=== PATIENT | female | born 1995 | race Hispanic/Latino ===

== ENCOUNTER 2021-10-18 09:47 | Day surgery (SDC) | payer OTHER ==
[2021-10-18 10:30] VITALS: BMI 44.4
[2021-10-18] MEDS ORDERED: hydrALAZINE 20 MG/ML VIAL SLOW IVP PRN (12:02)
== END 2021-10-18 11:36 | disposition home health service (06) ==
LOC: CSHLD/OP 09:47
PROVIDERS: ATTEND Student in an Organized Health Care Education/Training Program
DX: O36.8130 Decreased fetal movements, third trimester, not applicable or unspecified (principal); O34.03 Maternal care for unspecified congenital malformation of uterus, third trimester; Q51.3 Bicornate uterus; O36.5930 Maternal care for other known or suspected poor fetal growth, third trimester, not applicable or unspecified; O34.211 Maternal care for low transverse scar from previous cesarean delivery; Z3A.33 33 weeks gestation of pregnancy; Z88.5 Allergy status to narcotic agent

== ENCOUNTER 2021-11-14 13:28 | Outpatient (CLI) | payer OTHER ==
[2021-11-14 16:16] LABS: Hemoglobin 11.6 g/dL (12.0-15.5); Mean Corpuscular HGB CONC 32.7 g/dL (32.0-36.0); Mean Corpuscular Volume 79.6 fl (81.6-98.3); Mean Platelet Volume 10.7 fl (7.4-10.4); Platelet Count 242 10x3/uL (150-450); Red Blood Cell (RBC) Count 4.46 10x6/uL (3.90-5.03); White Blood Cell (WBC) Count 9.8 10x3/uL (3.5-10.5)
[2021-11-14 16:34] LABS: Syphilis Antibody Nonreactive (Nonreactive); Syphilis Antibody Index 0.07 S/CO (<1.00 Non-Reactive)
[2021-11-14 16:35] LABS: Hep B Surf Ag Non-Reactive S/CO (NonReactive)
[2021-11-14 16:44] LABS: HBSAg Index 0.17 S/CO (0-0.99)
[2021-11-15 18:35] LABS: SARS-CoV-2 PCR by NAA Not Detected (NotDetected)
== END 2021-11-14 13:29 | disposition home or self-care (01) ==
LOC: CSHLAB 13:28
PROVIDERS: ATTEND Student in an Organized Health Care Education/Training Program
DX: Z01.812 Encounter for preprocedural laboratory examination (principal); Z20.822 Contact with and (suspected) exposure to COVID-19; O34.211 Maternal care for low transverse scar from previous cesarean delivery
CPT/HCPCS: 85027; 86780; 86900; 86901; 87340; U0003; U0005

== ENCOUNTER 2021-11-16 10:10 | Inpatient (IN) | payer OTHER ==
[2021-11-16] MEDS ORDERED: ceFAZolin 2 GM/Dextrose 50 ML 2 GM in Premix Bag 1 BAG IVPB SCH (10:34)
[2021-11-16] MEDS ORDERED: Ondansetron PF 4 MG/2 ML Vial IVP PRN ×3 (10:34→16:05)
[2021-11-16] MEDS ORDERED: Bicitra 30 ML UDCUP PO PRN (10:34)
[2021-11-16] MEDS ORDERED: Famotidine/PF 20 mg/2ml Vial SLOW IVP PRN (10:34)
[2021-11-16] MEDS ORDERED: hydrALAZINE 20 MG/ML VIAL SLOW IVP PRN ×2 (10:34→16:05)
[2021-11-16] MEDS ORDERED: Promethazine HCl 25 MG/ML VIAL IM PRN ×2 (10:34→11:02)
[2021-11-16] MEDS ORDERED: Meperidine HCl/PF 25 MG/ML VIAL SLOW IVP PRN (11:02)
[2021-11-16] MEDS ORDERED: Naloxone HCl 0.4 mg/ml Vial IV PRN (11:02)
[2021-11-16] MEDS ORDERED: L&D-Morphine 4 MG/ML VIAL SLOW IVP PRN (11:02)
[2021-11-16] MEDS ORDERED: diphenhydrAMINE 50 MG/ML VIAL IVP PRN (11:02)
[2021-11-16] MEDS ORDERED: Fentanyl 100 MCG/2 ML VIAL SLOW IVP PRN (11:02)
[2021-11-16] MEDS ORDERED: Ondansetron HCl/PF 4 MG/2 ML Vial IVP PRN (11:02)
[2021-11-16] MEDS ORDERED: Hydrocerin (Eucerin) Cream 120 gm Jar TOP PRN (11:02)
[2021-11-16] MEDS ORDERED: Promethazine HCl 25 MG SUPP PR PRN (11:02)
[2021-11-16] MEDS ORDERED: Naloxone HCl 0.4 mg/ml Vial IVP PRN ×2 (11:02)
[2021-11-16] MEDS ORDERED: Morphine PF 10 MG/10 ML VIAL ONE (11:08)
[2021-11-16] MEDS ORDERED: Phenylephrine 40 MG/NS 250 ML 250 ML ONE (11:09)
[2021-11-16] MEDS ORDERED: Oxytocin 10 UNITS/ML VIAL ONE (11:09)
[2021-11-16] MEDS ORDERED: Ondansetron PF 4 MG/2 ML Vial ONE (11:09)
[2021-11-16] MEDS ORDERED: PHENYLEPHRINE-NS 100 MCG/ML 10 ML SYRINGE ONE (11:09)
[2021-11-16] MEDS ORDERED: Dexamethasone 4 mg/ml Vial ONE (11:09)
[2021-11-16] MEDS: Lactated Ringer's 1,000 ML IV SCH ×2 (11:10→12:03)
[2021-11-16] MEDS ORDERED: Communication Order-Pharmacy FS SCH (11:15)
[2021-11-16] MEDS ORDERED: Ketorolac Tromethamine 30 MG/ML VIAL IVP SCH (11:15)
[2021-11-16 13:03] LABS: RapidComm Collect By CBN; pH (Cord, venous) 7.357 (7.250-7.350)
[2021-11-16 13:04] LABS: RapidComm Collect By CBN
[2021-11-16] MEDS: Ketorolac Tromethamine 30 MG/ML VIAL IVP PRN ×2 (15:03→21:32)
[2021-11-16 15:55] VITALS: BMI 45.6
[2021-11-16] MEDS ORDERED: Bisacodyl 10 MG SUPP PR PRN (16:05)
[2021-11-16] MEDS ORDERED: Lanolin Ointment 7 GM TUBE TOP PRN (16:05)
[2021-11-16] MEDS ORDERED: Boostrix 0.5 ML (Tdap) VIAL IM ONE (16:05)
[2021-11-16] MEDS ORDERED: Zolpidem Tartrate 5 MG TAB PO PRN (16:05)
[2021-11-16] MEDS ORDERED: diphenhydrAMINE 25 MG CAP PO PRN (16:05)
[2021-11-16] MEDS ORDERED: Acetaminophen 325 MG TAB PO PRN (16:05)
[2021-11-16] MEDS ORDERED: HYDROcodone/Acetaminophen 5/325 mg Tablet PO PRN (16:05)
[2021-11-17] MEDS: Docusate 100 MG CAP PO SCH ×3 (04:42→21:58)
[2021-11-17] MEDS: Ferrous Sulfate 325 MG TAB PO SCH ×3 (04:42→21:35)
[2021-11-17] MEDS: Ibuprofen 800 MG TAB PO SCH ×4 (04:43→21:58)
[2021-11-17 04:57] LABS: Hemoglobin 10.8 g/dL (12.0-15.5); Mean Corpuscular HGB CONC 32.7 g/dL (32.0-36.0); Mean Corpuscular Hemoglobin 26.4 pg (27.0-33.0); Mean Corpuscular Volume 80.7 fl (81.6-98.3); Mean Platelet Volume 10.8 fl (7.4-10.4); Platelet Count 219 10x3/uL (150-450); RBC Distribution Width 15.1 % (11.5-14.5); Red Blood Cell (RBC) Count 4.09 10x6/uL (3.90-5.03)
[2021-11-17] MEDS: Lactated Ringer's 1,000 ML IV SCH ×2 (05:59→07:45)
[2021-11-17] MEDS: Prenatal Vitamin 1 TAB PO SCH (08:49)
[2021-11-17] MEDS: HYDROcodone/Acetaminophen 5/325 mg Tablet PO PRN (19:42)
[2021-11-17] MEDS: Simethicone Chewable 80 MG TAB PO PRN (21:59)
[2021-11-18] MEDS: Ibuprofen 800 MG TAB PO SCH (05:19)
[2021-11-18] MEDS: Lactated Ringer's 1,000 ML IV SCH ×2 (07:33→11:11)
[2021-11-18] MEDS: Prenatal Vitamin 1 TAB PO SCH (08:19)
[2021-11-18] MEDS: Simethicone Chewable 80 MG TAB PO PRN (08:19)
[2021-11-18] MEDS: Docusate 100 MG CAP PO SCH (08:19)
[2021-11-18] MEDS: Ferrous Sulfate 325 MG TAB PO SCH (08:22)
[2021-11-18] MEDS: HYDROcodone/Acetaminophen 5/325 mg Tablet PO PRN (09:40)
[2021-11-18 11:23] VITALS: BP 123/74; TEMP 98.4
== END 2021-11-18 11:55 | disposition home or self-care (01) | DRG 788 ==
LOC: CSHLD 10:10 → CSHPP 16:04
PROVIDERS: ADMIT Student in an Organized Health Care Education/Training Program; ATTEND Student in an Organized Health Care Education/Training Program
PROC: 10D00Z1 Extraction of Products of Conception, Low, Open Approach (ICD-10-PCS; principal; 2021-11-16)
DX: O34.211 Maternal care for low transverse scar from previous cesarean delivery (principal); O36.5930 Maternal care for other known or suspected poor fetal growth, third trimester, not applicable or unspecified; Z3A.37 37 weeks gestation of pregnancy; Z37.0 Single live birth; O32.1XX0 Maternal care for breech presentation, not applicable or unspecified; O34.03 Maternal care for unspecified congenital malformation of uterus, third trimester; Q51.3 Bicornate uterus
CPT/HCPCS: 36415; 51702; 82805; 85027; 86850; 86900; 86901; J0690; J1100; J1885; J2274; J2405; J2590; J7120; S0028

== ENCOUNTER 2022-07-31 11:44 | Outpatient (CLI) | payer OTHER | END 2022-07-31 11:45 | disposition home or self-care (01) | LOC: CSHRAD 11:44 | PROVIDERS: ATTEND Family Medicine | DX: M54.50 Low back pain, unspecified (principal) | CPT/HCPCS: 72100 ==